=== PATIENT | male | born 2000 | race Caucasian/White ===

== ENCOUNTER 2020-12-31 12:24 | Emergency (ER) | payer BC, SELFPAY ==
[2020-12-31 12:25] VITALS: BP 141/94; PULSE 82; RESP 20; TEMP 38.1; O2SAT 100; BMI 19.8
--- NOTE | 2020-12-31 13:51 | HMH.EDUTC ---
[facility] [place] Disposition Clinical Impression: STD exposure UTI (urinary tract infection) Qualifiers: Urinary tract infection type: site unspecified Hematuria presence: without hematuria Qualified Code(s): N39.0 - Urinary tract infection, site not specified Disposition: Home, Self-Care Condition on Discharge: Good Instructions: Urinary Tract Infection, Urine Culture, DI for Gonorrhea, DI for Chlamydia Additional Instructions: Drink plenty of fluids. Take tylenol or ibuprofen for pain or fever. Take the medications as directed. Follow up with your regular doctor for the test results in 3 to 4 days. GO TO THE ER FOR ANY WORSENING SYMPTOMS Prescriptions: Doxycycline Hyclate [Doxycycline 100mg Capsule] 100 mg PO Q12 10 Days #20 cap Transmission Status: Received by Clinic Pharmacy [facility] Referrals: Provider,Referral, [Primary Care Provider] - Forms: Work/School Release Time of Disposition: 14:42 Medical Decision Making - Medical Records Medical records reviewed: No: I reviewed the patient's medical records. - Manohar Inquiry Pt receiving controlled substance: No Vital Signs: 12/31/20 12:25 12/31/20 14:35 Temperature 100.6 F H 100.6 F H Temperature Source Temporal Artery Scan Temporal Artery Scan Pulse Rate 82 Pulse Rate [Left Radial] 82 Respiratory Rate 20 20 Blood Pressure 141/94 H Blood Pressure [Right Arm] 141/94 H Blood Pressure Mean [Right Arm] 109 Blood Pressure Source Automatic Cuff Blood Pressure Source [Right Arm] Automatic Cuff Blood Pressure Position Sitting Blood Pressure Position [Right Arm] Sitting 02 Sat by Pulse Oximetry 100 Oxygen Delivery Method Room Air Room Air - Lab Data Lab Results 12/31/20 13:36: Strep Scn Rapid Clinic Negative 12/31/20 13:36: Urine Color Dark yellow, Urine Appearance Clear, Urine pH 7.0, Ur Specific [place] 1.025, Urine Protein 3+, Urine Glucose (UA) Negative, Urine Ketones Trace, Urine Blood Negative, Urine Nitrate Negative, Urine Bilirubin Trace, Urine Urobilinogen 1, Ur Leukocyte Esterase Negative Orders (Tests/Meds): ED MEDICATIONS Discontinued Medications Generic Name Dose Route Start Last Admin Trade Name Freq PRN Reason Stop Dose Admin Ceftriaxone Sodium 1 gm 12/31/20 14:26 12/31/20 14:34 Ceftriaxone 1gm Vial IM 12/31/20 14:27 1 gm ONCE ONE Administration Protocol Lidocaine HCl 0 ml 12/31/20 14:26 12/31/20 14:34 Lidocaine 1% 5ml Pf Vial IM 12/31/20 14:27 2.1 ml ONCE ONE Administration ORDERS Category Date Time Status Strep Screen Confirmation Stat Micro 12/31/20 13:36 Received Urine Culture Stat Micro 12/31/20 14:00 Results [facility] [place] HPI - General Stated complaint: Possible UTI Time Seen by Provider: 12/31/20 13:51 Mode of Arrival: Ambulatory Source of Information: Patient Limitations: No Limitations Description of Symptoms (Recalled from Triage Doc. by RN): c/o burning with urination, fever and sore throat. HEENT Symptoms (Recalled from RN notes): Yes Resp Symptoms (Recalled from RN notes): No Skin Symptoms (Recalled from RN notes): No MS Symptoms (Recalled from RN notes): No Functional Status (Recalled from RN notes): wnl - History of Present Illness Provider Complaint: He states that he has been having burning with urination for the past 2 days. He has a sore throat also. And he has had chilling and body aches. - Related Data Previous Rx's Medication Instructions Recorded Doxycycline Hyclate [Doxycycline 100 mg PO Q12 10 Days #20 cap 12/31/20 100mg Capsule] Allergies Allergy/AdvReac Type Severity Reaction Status Date / Time No Known Allergies Allergy Verified 12/31/20 13:36 - Worker's Comp Is this a Worker's Comp case?: No [facility] History - Hepatitis A Screen Drug use history?: No High risk sexual behaviors?: No History of sexually transmitted infection?: No Currently employed?: No Childcare worker?: No Do you have indoor plumbing?: Yes
[2020-12-31 14:35] VITALS: BP 141/94; PULSE 82; RESP 20; TEMP 38.1; O2SAT 100
[2020-12-31 17:31] LABS: UTC Strep Screen (Rapid) Negative (Negative)
[2020-12-31 17:32] LABS: Apearance,Urine Clear (Clear); Color,Urine Dark Yellow (Yellow); Specific Gravity, Urine 1.025 (1.005-1.030)
[2020-12-31 17:33] LABS: Bilirubin,Urine Trace (Negative); Blood, Urine Negative (Negative); Glucose,Urine (UA) Negative (Negative); Ketones,Urine TRACE (Negative); Protein,Urine 3+ (Negative); UTC Leukocyte Esterase,Urine Negative (Negative); UTC Nitrate,Urine Negative (Negative); Urobilinogen,Urine 1 EU/dl (0.2)
[2021-01-02 19:48] LABS: Neisseria gonorrhoeae, NAA Negative (Negative)
== END 2020-12-31 14:45 | disposition home or self-care (01) ==
PROVIDERS: Emergency Provider Nurse Practitioner Family
DX: N30.00 Acute cystitis without hematuria (principal); Z20.2 Contact with and (suspected) exposure to infections with a predominantly sexual mode of transmission; Z20.822 Contact with and (suspected) exposure to COVID-19
CPT/HCPCS: 81003; 87086; 87491; 87591; 87880; 96372; 99203; G0463; U0003

== ENCOUNTER 2021-02-06 11:11 | Emergency (ER) | payer BC, SELFPAY ==
[2021-02-06 13:25] VITALS: PULSE 89; RESP 16; TEMP 36.9; O2SAT 98; BMI 19.9
[2021-02-06 13:29] VITALS: BP 136/88; PULSE 89; RESP 16; TEMP 36.9
--- NOTE | 2021-02-06 13:57 | HMH.EDUTC ---
[facility] [place] Disposition Clinical Impression: Strep throat exposure, Exposure to COVID-19 virus Disposition: Home, Self-Care Condition on Discharge: Good Instructions: DI for Strep Throat, Preventing the Spread of Coronavirus Discharge Instructions Additional Instructions: Drink plenty of fluids. Take tylenol for pain or fever. Return if you begin to have difficulty breathing. Follow up with your regular doctor. GO TO THE ER FOR ANY WORSENING SYMPTOMS Quarantine until you know the results of your covid-19 test. If it is positive, the health department should call you and give you further instructions about your length of Quarantine and other things. Notify your school or workplace of your results and follow their instructions regarding return to work/school. Start the azithromycin (antibiotics) if you begin to have strep throat symptoms. Prescriptions: Azithromycin [Z-Clyde 250mg Tab*] 250 mg PO UD DOSE PK #6 tab Transmission Status: Received by Clinic [facility] Referrals: Provider,Referral, [Primary Care Provider] - Forms: Work/School Release Time of Disposition: 14:00 Medical Decision Making - Medical Records Medical records reviewed: No: I reviewed the patient's medical records. - Manohar Inquiry Pt receiving controlled substance: No Vital Signs: 02/06/21 13:25 02/06/21 13:29 Temperature 98.4 F 98.4 F Temperature Source Oral Pulse Rate 89 Pulse Rate [Left] 89 Respiratory Rate 16 16 Blood Pressure 136/88 02 Sat by Pulse Oximetry 98 [facility] HPI - General Stated complaint: covid test/exposure Time Seen by Provider: 02/06/21 13:57 Mode of Arrival: Ambulatory Source of Information: Patient Limitations: No Limitations Description of Symptoms (Recalled from Triage Doc. by RN): COVID TEST, ASYMPTOMATIC. HEENT Symptoms (Recalled from RN notes): No Resp Symptoms (Recalled from RN notes): No Skin Symptoms (Recalled from RN notes): No MS Symptoms (Recalled from RN notes): No Functional Status (Recalled from RN notes): NA - History of Present Illness Provider Complaint: His daughter was exposed to covid-19 last week. She started to run a fever and feel bad 2 days ago. He has not been vaccinated against covid-19. He denies any symptoms so far. - Related Data Previous Rx's Medication Instructions Recorded Doxycycline Hyclate [Doxycycline 100 mg PO Q12 10 Days #20 cap 12/31/20 100mg Capsule] Azithromycin [Z-Clyde 250mg Tab*] 250 mg PO UD DOSE PK #6 tab 02/06/21 Allergies Allergy/AdvReac Type Severity Reaction Status Date / Time No Known Allergies Allergy Verified 12/31/20 13:36 - Worker's Comp Is this a Worker's Comp case?: No [facility] History - Hepatitis A Screen Drug use history?: No High risk sexual behaviors?: No History of sexually transmitted infection?: No Currently employed?: No Childcare worker?: No Do you have indoor plumbing?: Yes Do you have electricity?: Yes Attestation statement:: This patient has been screened for Hepatitis A risk factors. I have reviewed the patient's past medical history: Yes ROS Obtained: Yes All systems reviewed & no additional complaints - Constitutional Constitutional: Reports system reviewed and no additional complaints, except as docu - Eyes Eyes: Reports system reviewed and no additional complaints, except as docu - ENT Ears, Nose, Mouth, and Throat: Reports system reviewed and no additional complaints, except as docu - Cardiovascular Cardiovascular: Reports system reviewed and no additional complaints, except as docu - Respiratory Respiratory: Reports system reviewed and no additional complaints, except as docu Physical Exam - General General appearance: alert, in no apparent distress - Head Head exam: atraumatic, normocephalic, normal inspection - Eye Eye exam: Present: normal appearance, PERRL, EOMI - ENT ENT exam: Present: normal exam, normal oropharynx, mucous membranes moist, TM's normal
== END 2021-02-06 14:14 | disposition home or self-care (01) ==
PROVIDERS: Emergency Provider Nurse Practitioner Family
DX: J02.0 Streptococcal pharyngitis (principal); Z20.822 Contact with and (suspected) exposure to COVID-19
CPT/HCPCS: 99202; G0463; U0003

== ENCOUNTER 2021-08-16 17:00 | Emergency (ER) | payer BC, SELFPAY ==
[2021-08-16 17:00] VITALS: BP 134/85; PULSE 96; RESP 18; TEMP 37; O2SAT 99; BMI 20.5
--- NOTE | 2021-08-16 17:19 | CT_ITS ---
PROCEDURE INFORMATION: Exam: CT Abdomen And Pelvis Without Contrast Exam date and time: 08/16/2021 5:19 PM Age: 20 years old Clinical indication: Abdominal pain; Flank; Left; Additional info: Left flank pain TECHNIQUE: Imaging protocol: Computed tomography of the abdomen and pelvis without contrast. Radiation optimization: All CT scans at this facility use at least one of these dose optimization techniques: automated exposure control; mA and/or kV adjustment per patient size (includes targeted exams where dose is matched to clinical indication); or iterative reconstruction. COMPARISON: No relevant prior studies available. FINDINGS: Lungs: Lung bases unremarkable. Liver: The right lobe of the liver is low lying. The appearance is suggestive of a Lydia's lobe. Gallbladder and bile ducts: The gallbladder is contracted. A large amount of food products are demonstrated in the stomach. Pancreas: Normal. No ductal dilation. Spleen: Normal. No splenomegaly. Adrenal glands: Normal. No mass. Kidneys and ureters: Normal. No hydronephrosis. Stomach and bowel: The bowel is not opacified. In conjunction with excessive amount of retained fecal debris, intrinsic abnormalities could not be excluded. No findings to suggest diverticulosis or diverticulitis. Appendix: No evidence of appendicitis. Intraperitoneal space: Unremarkable. No free air. No significant fluid collection. Vasculature: Unremarkable. No abdominal aortic aneurysm. Lymph nodes: Unremarkable. No enlarged lymph nodes. Urinary bladder: Unremarkable as visualized. Reproductive: Unremarkable as visualized. Bones/joints: Unremarkable. No acute fracture. Soft tissues: Unremarkable. IMPRESSION: 1. Low lying right lobe of the liver. Findings suggestive of a Lydia's lobe rather than hepatomegaly. Clinically correlate. 2. Markedly contracted gallbladder secondary to postprandial state. 3. Limited bowel evaluation secondary to lack of contrast. No evidence of obstruction.
--- NOTE | 2021-08-16 17:36 | HMH.EDGENADL ---
ED Disposition Clinical Impression: Gastroenteritis Disposition: Home, Self-Care Condition on Discharge: Good Instructions: DI for Viral Gastroenteritis -- Adult Prescriptions: Dicyclomine HCl [Bentyl 10mg capsule] 10 mg PO QID #28 cap Transmission Status: Pending to [id number] Ondansetron [Zofran 4mg ODT] 4 mg PO BIDP PRN #10 tab PRN Reason: Nausea Transmission Status: Pending to [id number] Referrals: Provider,MD Orlin [Primary Care Provider] - Yvan Jha MD [Staff Physician] - - Critical Care Critical Care Time: No Attestation: On 08/16/21, the high probability of a clinically significant, sudden or life threatening deterioration of the following system(s) required my full and direct attention, intervention and personal management. The time I documented below is in addition to time spent performing reported procedures but includes the following listed in this critical care notation. Medical Decision Making - Medical Records Medical records reviewed: Yes: I reviewed the patient's medical records. - Manohar Inquiry Pt receiving controlled substance: No Vital Signs: 08/16/21 17:00 08/16/21 18:00 Temperature 98.6 F Temperature Source Oral Pulse Rate 74 Pulse Rate [Left Radial] 96 H Respiratory Rate 18 16 Blood Pressure 121/69 Blood Pressure [Right Arm] 134/85 Blood Pressure Mean 88 Blood Pressure Mean [Right Arm] 101 02 Sat by Pulse Oximetry 99 98 Oxygen Delivery Method Room Air - Lab Data Lab Results 08/16/21 17:20: WBC 5.9, RBC 4.92, Hgb 15.9, Hct 46.4, MCV 94.4 H, MCH 32.4 H, MCHC 34.3, RDW 12.5, Plt Count 320, MPV 7.5, Neut % (Auto) 60.8, Lymph % (Auto) 30.6, [place] % (Auto) 5.8, Eos % (Auto) 1.2, Baso % (Auto) 1.7, Neut # (Auto) 3.6, Lymph # (Auto) 1.8, [place] # (Auto) 0.3, Eos # (Auto) 0.1, Baso # (Auto) 0.1 08/16/21 17:20: Sodium 139, Potassium 3.6, Chloride 100, Carbon Dioxide 28, Anion Gap 14.6, BUN 4 L, Creatinine 0.80, Estimated Creat Clear 149, Estimated GFR 121, Est GFR ( Amer) 146, Glucose 86, Calcium 8.4, Total Bilirubin 0.6, AST 105 H, ALT 82 H, Alkaline Phosphatase 100, Total Protein 7.5, Albumin 4.6, Globulin 2.9, Albumin/Globulin Ratio 1.6, Lipase 148 Result diagrams: 08/16/21 17:20 08/16/21 17:20 Orders (Tests/Meds): ED MEDICATIONS Generic Name Dose Route Start Last Admin Trade Name Freq PRN Reason Stop Dose Admin Sodium Chloride 1,000 mls @ 999 mls/hr 08/16/21 17:30 08/16/21 17:32 Sod Chlor 0.9% 1000ml Bag IV 08/16/21 18:30 999 mls/hr .Q1H1M GIOVANNI Administration Discontinued Medications Generic Name Dose Route Start Last Admin Trade Name Freq PRN Reason Stop Dose Admin Ketorolac Tromethamine 30 mg 08/16/21 17:19 08/16/21 17:32 Ketorolac 30mg/Ml Vial IV 08/16/21 17:20 30 mg ONCE ONE Administration Ondansetron HCl 4 mg 08/16/21 17:19 08/16/21 17:32 Ondansetron 4mg/2ml Vial IV 08/16/21 17:20 4 mg ONCE ONE Administration ORDERS Category Date Time Status CT abdomen pelvis wo con Stat Cat Scan 08/16/21 17:19 Taken Urinalysis and Microscopic Stat Lab 08/16/21 17:19 Ordered - CT Data CT Scan: Abdomen, Pelvis Time Received: 19:[address] Reviewed: Yes: I have reviewed the patient's CT results, I have viewed the radiologist's interpretation Findings Narrative: Low hanging lobe of the liver concerning for Lydia's lobe. Gallbladder is contracted. No other acute findings. - Reevaluation(s) Time: 19:38 Reevaluation #1: On reevaluation, patient is feeling much better. He is tolerating oral intake. Repeat abdominal examination is benign. No evidence of acute abdomen. Does have some nonspecific findings in the liver which will require follow-up with his PCP. Patient was given strict return precautions. Verbalized understanding. Medical Decision Narrative: 20-year-old male presenting with sharp stabbing pain in the left side. Concern for nephrolithiasis. Abdo
[2021-08-16 17:38] LABS: Chloride 100 mmol/L (98-107); Potassium 3.6 mmoL/L (3.5-5.1); Sodium 139 mmol/L (136-145)
[2021-08-16 17:40] LABS: Basophils # 0.1 K/mm3 (0-0.2); Basophils % 1.7 % (0.1-2.0); Blood Urea Nitrogen 4 mg/dl (9-20); Creatinine Clearance Estimated 149 mL/min (50-200); Eosinophils # 0.1 K/mm3 (0.0-0.4); Eosinophils % 1.2 % (0.1-12.0); Estimated Glomerular Filt Rate 121 ml/min (>60); GFR (African American) 146 ML/MIN (>60); Hematocrit 46.4 % (42.0-52.0); Hemoglobin 15.9 g/dL (14.1-18.0); Lymphocytes # 1.8 K/mm3 (0.7-4.5); Lymphocytes % 30.6 % (10-50); Mean Corpuscular HGB Conc 34.3 g/dL (31.8-35.4); Mean Corpuscular Hemoglobin 32.4 pg (27.0-31.2); Mean Corpuscular Volume 94.4 fl (80-94); Mean Platelet Volume 7.5 fl (7.4-10.4); Monocytes # 0.3 K/mm3 (0.1-1.0); Monocytes % 5.8 % (1.7-9.3); Neutrophils # 3.6 K/mm3 (1.8-7.8); Neutrophils % 60.8 % (37.0-80.0); Platelet Count 320 K/mm3 (142-424); Red Blood Count 4.92 M/mm3 (4.60-6.20); Red Cell Distribution Width 12.5 % (11.5-17.5); White Blood Count 5.9 K/mm3 (4.8-10.8)
[2021-08-16 17:41] LABS: Albumin Level 4.6 g/dl (3.5-5.0); Albumin/Globulin Ratio 1.6 (1.1-1.8); Anion Gap 14.6 mEq/L (5-15); Calcium 8.4 mg/dl (8.4-10.2); Carbon Dioxide 28 mmol/L (22.0-30.0); Globulin 2.9 g/dL (1.3-3.2); Glucose 86 mg/dl (74-100); Lipase 148 U/L (23-300); Total Protein,Serum 7.5 g/dl (6.3-8.2)
[2021-08-16 17:46] LABS: Alanine Aminotransferase 82 U/L (12-78); Alkaline Phosphatase 100 U/L (38-126); Aspartate Amino Transferase 105 U/L (17-59); Bilirubin,Total 0.6 mg/dl (0.2-1.3)
[2021-08-16 18:00] VITALS: BP 121/69; PULSE 74; RESP 16; O2SAT 98
[2021-08-16 19:00] VITALS: BP 117/60; PULSE 66; O2SAT 97
[2021-08-16 19:30] VITALS: BP 123/90; PULSE 70; O2SAT 96
[2021-08-16 19:59] LABS: Microscopic, Urine URINE MICROSCOPIC (MICROSCOPIC)
[2021-08-16 20:04] LABS: Appearance,Urine CLEAR (Clear); Bilirubin,Urine Negative (Negative); Blood, Urine Negative (Negative); Color,Urine DK YELLOW (Yellow); Glucose,Urine (UA) Negative (Negative); Ketones,Urine Negative (Negative); Leukocyte Esterase,Urine Negative (Negative); Nitrate,Urine Negative (Negative); Protein,Urine TRACE (Negative); Specific Gravity, Urine 1.025 (1.005-1.030)
[2021-08-16 20:06] LABS: Bacteria,Urine 1+ /lpf
[2021-08-16 20:50] VITALS: BP 120/87; PULSE 65; RESP 16; TEMP 36.5; O2SAT 98
== END 2021-08-16 20:52 | disposition home or self-care (01) ==
PROVIDERS: Emergency Provider Emergency Medicine
DX: K52.9 Noninfective gastroenteritis and colitis, unspecified (principal)
CPT/HCPCS: 74176; 80053; 81001; 83690; 85025; 87086; 96365; 96375; 99284; J2405

== ENCOUNTER 2022-06-11 17:34 | Emergency (ER) | payer BC, SELFPAY ==
--- NOTE | 2022-06-11 18:02 | PC.NURSE ---
SOLOMON HOLLOWAY at
--- NOTE | 2022-06-11 18:08 | CT_ITS ---
PROCEDURE INFORMATION: Exam: CT Abdomen And Pelvis With Contrast Exam date and time: 06/11/2022 6:47 PM Age: 21 years old Clinical indication: Abdominal pain; Generalized; Additional info: Generalized pain, sudden onset, diffuse tenderness TECHNIQUE: Imaging protocol: Computed tomography of the abdomen and pelvis with contrast. Radiation optimization: All CT scans at this facility use at least one of these dose optimization techniques: automated exposure control; mA and/or kV adjustment per patient size (includes targeted exams where dose is matched to clinical indication); or iterative reconstruction. Contrast material: ISOVUE; Contrast volume: 75 ml; Contrast route: IV; COMPARISON: CT ABDOMEN PELVIS WO CON 08/16/2021 5:30 PM FINDINGS: Liver: Normal. No mass. Gallbladder and bile ducts: Normal. No calcified stones. No ductal dilation. Pancreas: Normal. No ductal dilation. Spleen: Normal. No splenomegaly. Adrenal glands: Normal. No mass. Kidneys and ureters: Normal. No hydronephrosis. Stomach and bowel: Unremarkable. No obstruction. No mucosal thickening. Appendix: No evidence of appendicitis. Intraperitoneal space: Unremarkable. No free air. No significant fluid collection. Vasculature: Unremarkable. No abdominal aortic aneurysm. Lymph nodes: Unremarkable. No enlarged lymph nodes. Urinary bladder: Unremarkable as visualized. Reproductive: Unremarkable as visualized. Bones/joints: Unremarkable. No acute fracture. Soft tissues: Unremarkable. IMPRESSION: No acute findings.
--- NOTE | 2022-06-11 18:08 | HMH.EDGENADL ---
Discharge Plan Disposition Patient Disposition: Home, Self-Care Condition: Good Prescriptions Prescriptions: New ondansetron 4 mg tablet,disintegrating 4 mg PO Q8H PRN (Reason: nausea and vomiting) Qty: 12 0RF No Action doxycycline hyclate 100 MG capsule 100 mg PO Q12 10 Days Qty: 20 0RF azithromycin 250 MG tablet 250 mg PO UD DOSE PK Qty: 6 0RF Rx Instructions: Take two (2) tablets today, then one (1) tablet days #2 thru #5 ondansetron 4 MG tablet,disintegrating 4 mg PO BIDP PRN (Reason: Nausea) Qty: 10 0RF dicyclomine 10 MG capsule 10 mg PO QID Qty: 28 0RF cefdinir 300 MG capsule 300 mg PO BID 7 Days Qty: 14 0RF cefdinir 300 MG capsule 300 mg PO BID 10 Days Qty: 20 0RF Referrals Follow up/Referrals: Grover Lovett MD [Primary Care Provider] - See instructions Activity Restrictions/Add. Instructions Additional Instructions/Restrictions: You were evaluated in the emergency department today. Please follow-up with your primary care provider over the next 48 hours. Follow-up to have your liver enzymes rechecked. Keep your outpatient follow-up with gastroenterology. 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 Orally hydrate at home is much as possible. Return to the emergency department for any new or worsening symptoms. Clinical Impressions Clinical Impression: Transaminitis Nausea & vomiting Qualifiers: Vomiting type: unspecified Qualified Code(s): R11.2 - Nausea with vomiting, unspecified Abdominal pain Qualifiers: Abdominal location: epigastric Qualified Code(s): R10.13 - Epigastric pain Instructions Patient Instructions: DI for Acute Abdominal Pain, Nausea and Vomiting-Adult Discharge ED Provider: Beckie Alex General Adult HPI General Chief complaint: Abdominal Pain Stated complaint: vomiting, adm pain Time Seen by Provider: 06/11/22 18:02 History of Present Illness HPI narrative: This patient is a 21-year-old male who reports a history of celiac disease presented to the emergency department for evaluation with concern for epigastric abdominal pain, nausea, and vomiting that started just prior to arrival. He has been having intermittent abdominal pain, however nothing this severe. Nothing seems to make it better or worse. He denies any recent fevers, chest pain, shortness of breath, changes in bowel movements, or other concerns. Related Data Previous Rx's Medication Instructions Recorded doxycycline hyclate 100 mg capsule 100 mg PO Q12 10 days #20 caps 12/31/20 azithromycin 250 mg tablet 250 mg PO UD DOSE PK #6 tabs 02/06/21 cefdinir 300 mg capsule 300 mg PO BID 10 days #20 caps 08/16/21 cefdinir 300 mg capsule 300 mg PO BID 7 days #14 caps 08/16/21 dicyclomine 10 mg capsule 10 mg PO QID #28 caps 08/16/21 ondansetron 4 mg disintegrating 4 mg PO BIDP PRN Nausea #10 tabs 08/16/21 tablet ondansetron 4 mg disintegrating 4 mg PO Q8H PRN nausea and 06/11/22 tablet vomiting #12 tabs Allergies Allergy/AdvReac Type Severity Reaction Status Date / Time No Known Allergies Allergy Verified 12/31/20 13:36 [facility] Disclaimer: The information contained in this section may have been updated after the patient was seen, as this information can be updated by other users. Social History Smoking Status: Never smoker alcohol intake: never current occupational status: employed Travel in the last 8 weeks: None ROS Obtained: Yes All systems reviewed & no additional complaints except as documented 14 point review of systems obtained and negative except as mentioned in HPI. Physical Exam General General appearance: alert Comment: Uncomfortable appearing Head Head exam: atraumatic and normocephalic Eye Eye exam: Present normal appearance, PERRL and EOMI ENT ENT exam: Present normal exam, normal oropharynx and mucous membranes moist Neck
--- NOTE | 2022-06-11 18:10 | ECG_ITS ---
APPROVED REPORT Exam: Resting ECG HR:102 bpm ECG Measurements Heart Rate 102 AXES LA 150 P 66 QRSd 102 QRS 86 QT 335 T 54 QTc 393 Conclusion SINUS TACHYCARDIA INCOMPLETE RIGHT BUNDLE BRANCH BLOCK [90+ ms QRS DURATION, TERMINAL R IN V1/V2, 40+ ms S IN I/aVL/V4/V5/V6] NONSPECIFIC T-WAVE ABNORMALITY ABNORMAL RHYTHM ECG UNCONFIRMED REPORT Electronically signed by : Grover Muñiz MD 06/12/2022 08:08:08
[2022-06-11 18:13] VITALS: BP 150/94; PULSE 95; RESP 16; TEMP 36.9; O2SAT 96; BMI 20.5
[2022-06-11 18:30] VITALS: BP 124/75; PULSE 89; O2SAT 96
[2022-06-11 18:49] LABS: Basophils # 0.1 K/mm3 (0-0.2); Basophils % 0.9 % (0.1-2.0); Eosinophils # 0.1 K/mm3 (0.0-0.4); Eosinophils % 0.7 % (0.1-12.0); Hematocrit 43.9 % (42.0-52.0); Hemoglobin 14.7 g/dL (14.1-18.0); Lymphocytes % 25.3 % (10-50); Mean Corpuscular HGB Conc 33.5 g/dL (31.8-35.4); Mean Corpuscular Hemoglobin 30.9 pg (27.0-31.2); Mean Corpuscular Volume 92.3 fl (80-94); Mean Platelet Volume 7.4 fl (7.4-10.4); Monocytes # 0.3 K/mm3 (0.1-1.0); Monocytes % 4.1 % (1.7-9.3); Neutrophils # 5.3 K/mm3 (1.8-7.8); Neutrophils % 68.9 % (37.0-80.0); Platelet Count 345 K/mm3 (142-424); Red Blood Count 4.76 M/mm3 (4.60-6.20); Red Cell Distribution Width 12.6 % (11.5-17.5); White Blood Count 7.7 K/mm3 (4.8-10.8)
--- NOTE | 2022-06-11 18:50 | PC.NURSE ---
pt to radiology via WC with information technology security manager
[2022-06-11 19:05] LABS: Chloride 102 mmol/L (98-107); Potassium 3.7 mmoL/L (3.5-5.1); Sodium 143 mmol/L (136-145)
[2022-06-11 19:07] LABS: Blood Urea Nitrogen 7 mg/dl (9-20); Creatinine Clearance Estimated 131 mL/min (50-200); Estimated Glomerular Filt Rate 105 ml/min (>60); GFR (African American) 127 ML/MIN (>60)
[2022-06-11 19:08] LABS: Alanine Aminotransferase 83 U/L (12-78); Albumin Level 4.8 g/dl (3.5-5.0); Albumin/Globulin Ratio 1.5 (1.1-1.8); Alkaline Phosphatase 114 U/L (38-126); Anion Gap 18.7 mEq/L (5-15); Aspartate Amino Transferase 91 U/L (17-59); Bilirubin,Total 0.6 mg/dl (0.2-1.3); Carbon Dioxide 26 mmol/L (22.0-30.0); Globulin 3.2 g/dL (1.3-3.2); Glucose 131 mg/dl (74-100); Lipase 171 U/L (23-300)
--- NOTE | 2022-06-11 19:41 | PC.NURSE ---
Dr. Alex at [facility]
--- NOTE | 2022-06-11 20:04 | PC.NURSE ---
pt in bed, friend sitting on bed with him, nothing needed at this time
[2022-06-11 20:34] VITALS: BP 125/75; PULSE 89; RESP 16; TEMP 36.9; O2SAT 96
[2022-06-12] LABS: Reflex Lactic Add Lactic Reflex
== END 2022-06-11 20:45 | disposition home or self-care (01) ==
PROVIDERS: Emergency Provider Emergency Medicine; PCP Family Medicine
DX: R10.13 Epigastric pain (principal); R11.2 Nausea with vomiting, unspecified; R74.01 Elevation of levels of liver transaminase levels; K90.0 Celiac disease; Z20.822 Contact with and (suspected) exposure to COVID-19
CPT/HCPCS: 74177; 80053; 83605; 83690; 85025; 93005; 96361; 96374; 96375; 99285; J2405; Q9967

== ENCOUNTER 2022-11-10 21:03 | Emergency (ER) | payer SELFPAY ==
[2022-11-10] VITALS (7 sets, daily range): BP systolic 130–156; BP diastolic 80–99; PULSE 75–109; RESP 16–28; TEMP 36.6–36.8; O2SAT 94–100; BMI 18.1
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
[2022-11-10 21:22] LABS: Chloride 102 mmol/L (98-107)
[2022-11-10 21:23] LABS: Potassium 3.4 mmoL/L (3.5-5.1); Sodium 143 mmol/L (136-145)
[2022-11-10 21:25] LABS: Alanine Aminotransferase 25 U/L (12-78); Aspartate Amino Transferase 37 U/L (17-59); Blood Urea Nitrogen 10 mg/dl (9-20); Creatinine Clearance Estimated 130 mL/min (50-200); Estimated Glomerular Filt Rate 120 ml/min (>60); Ethyl Alcohol 267 mg/dl (0-10); GFR (African American) 145 ML/MIN (>60)
[2022-11-10 21:26] LABS: Albumin Level 4.6 g/dl (3.5-5.0); Albumin/Globulin Ratio 1.3 (1.1-1.8); Alkaline Phosphatase 94 U/L (38-126); Anion Gap 17.4 mEq/L (5-15); Bilirubin,Total 0.4 mg/dl (0.2-1.3); Calcium 9.2 mg/dl (8.4-10.2); Carbon Dioxide 27 mmol/L (22.0-30.0); Globulin 3.5 g/dL (1.3-3.2); Glucose 120 mg/dl (74-100); Total Protein,Serum 8.1 g/dl (6.3-8.2)
[2022-11-10 21:28] LABS: Activated Partial Thrombo Time 25.5 seconds (22.8-30.6); INR 0.95 (0.9-1.1); Prothrombin Time 10.3 seconds (10.1-12.5)
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
[2022-11-10 21:57] LABS: Alanine Aminotransferase 24 U/L (12-78); Albumin Level 4.7 g/dl (3.5-5.0); Alkaline Phosphatase 99 U/L (38-126); Aspartate Amino Transferase 35 U/L (17-59); Bilirubin,Indirect 0.5 mg/dL (0.0-0.9); Bilirubin,Total 0.5 mg/dl (0.2-1.3); Bilirubin,Unconjugated 0.5 mg/dL (0.0-1.1); Magnesium 2.2 mg/dl (1.6-2.3); Total Protein,Serum 7.9 g/dl (6.3-8.2)
--- NOTE | 2022-11-10 22:21 | PC.NURSE ---
Cervical spine is clear. Removed c-collar per attending
--- NOTE | 2022-11-10 22:47 | PC.NURSE ---
on the phone With [facility] transfer center at this time.
--- NOTE | 2022-11-10 22:49 | PC.NURSE ---
on the phone with MD's at this time.
[2022-11-11] VITALS (13 sets, daily range): BP systolic 123–137; BP diastolic 63–83; PULSE 60–87; RESP 17–18; TEMP 36.7; O2SAT 94–97
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
--- NOTE | 2022-11-11 08:37 | PC.NURSE ---
pt being D/C with family. Pt requesting some info on AA , care management came down with info for him. pt sent with disk of films for further treatment
--- NOTE | 2022-11-11 08:47 | SW/DCPLANNER ---
I have provided this patient with an [facility] Resource list.
== END 2022-11-11 08:46 | disposition home or self-care (01) ==
PROVIDERS: Emergency Provider Emergency Medicine
DX: S06.0XAA Concussion with loss of consciousness status unknown, initial encounter (principal); S02.40CA Maxillary fracture, right side, initial encounter for closed fracture; S02.31XA Fracture of orbital floor, right side, initial encounter for closed fracture; S02.40EA Zygomatic fracture, right side, initial encounter for closed fracture; S01.111A Laceration without foreign body of right eyelid and periocular area, initial encounter; Z23 Encounter for immunization; V29.39XA Other motorcycle (driver) (passenger) injured in unspecified nontraffic accident, initial encounter
CPT/HCPCS: 12051; 12041; 70450; 70486; 71045; 71275; 72125; 72128; 72131; 72170; 74177; 80053; 80076; 83735; 85610; 85730; 90715; 96361; 96365; 96372; 96375; 99285; J0131; J0696; J2405; Q9967

== ENCOUNTER 2024-06-04 10:23 | Emergency (ER) | payer SELFPAY ==
[2024-06-04 11:35] VITALS: BP 125/88; PULSE 100; RESP 18; TEMP 36.6; O2SAT 98; BMI 19.2
[2024-06-04] MEDS: TETRACAINE/BENZOCAINE/BUTAMBEN 56 GM SPRAY TP (11:45)
--- NOTE | 2024-06-04 11:47 | ED_ITS ---
Discharge Plan Disposition Patient Disposition: Home, Self-Care Condition: Good Prescriptions Prescriptions: New ibuprofen [IBU] 800 mg tablet 800 mg PO Q8HP PRN (Reason: Moderate Pain) Qty: 30 0RF amoxicillin-pot clavulanate 875-125 mg Tablet 1 tab PO Q12H Qty: 20 0RF No Action cephalexin [cephalexin] 500 mg capsule 500 mg PO TID Qty: 30 0RF ketorolac 10 mg tablet 10 mg PO Q8H PRN (Reason: pain) 3 Days Qty: 10 0RF Referrals Follow up/Referrals: Provider,Referral, MD [Primary Care Provider] - See instructions Activity Restrictions/Add. Instructions Additional Instructions/Restrictions: Drink plenty of fluids. Take the medications as directed. Follow up with your regular doctor. GO TO THE ER FOR ANY WORSENING SYMPTOMS You must follow up with a dentist. Please call and get an appointment to be seen as soon as they can see you. Clinical Impressions Clinical Impression: Dental abscess, Pain, dental, Jaw pain Instructions Patient Instructions: Tooth Abscess, DI for Tooth Abscess Print Language Print Language: Amharic Discharge ED Provider: Paolo Medley [facility] HPI General Stated complaint: left upper jaw pain Mode of Arrival: Ambulatory Source of Information: Patient Time Seen by Provider: 06/04/24 11:47 Description of Symptoms (Recalled from Triage Doc. by RN): TOOTH ACHE HEENT Symptoms (Recalled from RN notes): Yes Resp Symptoms (Recalled from RN notes): No Skin Symptoms (Recalled from RN notes): No MS Symptoms (Recalled from RN notes): No Functional Status (Recalled from RN notes): WNL Related Data Previous Rx's ?Medication ?Instructions ?Recorded cephalexin 500 mg capsule 500 mg PO TID #30 caps 11/11/22 ketorolac 10 mg tablet 10 mg PO Q8H PRN pain 3 days #10 11/11/22 tabs amoxicillin 875 mg-potassium 1 tab PO Q12H #20 tabs 06/04/24 clavulanate 125 mg tablet ibuprofen 800 mg tablet (IBU) 800 mg PO Q8HP PRN Moderate Pain 06/04/24 #30 tabs Allergies Allergy/AdvReac Type Severity Reaction Status Date / Time No Known Allergies Allergy Verified 10/15/22 11:38 Worker's Comp Is this a Worker's Comp case?: No [facility] Disclaimer: The information contained in this section may have been updated after the patient was seen, as this information can be updated by other users. Social History Smoking Status: Never smoker alcohol intake: never current occupational status: employed Travel in the last 8 weeks: None Have you lived/traveled outside [place] in past 30 days?: No Contact w/someone who lives/traveled outside [place] past 30 days?: No Exposure to someone with infectious disease in past 14 days?: No Do you have a fever (greater than 100.4 F or 38 C)?: No Have you tested positive for COVID-19: No Exposed to someone with COVID-19 in past 14 days?: No Do you have a sore throat?: No Do you have a cough?: No Do you have any weakness?: No Do you have any diarrhea?: No Are you experiencing any unusual bleeding?: No Do you have any muscle aches/pain?: No Do you have any abdominal pain?: No Are you experiencing loss of taste or smell?: No ROS Obtained: Yes All systems reviewed & no additional complaints except as documented Constitutional Constitutional: Denies chills and Denies fever(s) Eyes Eyes: Denies eye discharge ENT Ears, Nose, Mouth, and Throat: Reports as per HPI, Denies dizziness, Denies otalgia and Denies sore throat Cardiovascular Cardiovascular: Denies chest pain Respiratory Respiratory: Denies shortness of breath, Denies chest congestion, Denies cough, Denies stridor and Denies wheezing Gastrointestinal Gastrointestingal: Denies nausea or vomiting Musculoskeletal Musculoskeletal: Reports system reviewed and no additional complaints, except as documented and Denies arthralgias Integumentary/Breasts Skin/Breast: Denies rash Neurologic Neurologic: Denies dizziness and Denies paresthesias Allergic/Immunologic Allergic/Immunologic: Denies wheezing Physical Exam General General appearance: alert and in no apparent distress Head Head exam: atraumatic, normocephalic and normal inspection Eye Eye exam: Present normal appearance, PERRL and EOMI ENT ENT exam: Present mucous membranes moist, TM's normal bilaterally and normal external ear exam Expanded ENT Exam Nose exam: Absent sinus tenderness Nasal speculum exam: Bilateral: normal Mouth exam: Present normal external inspection; Absent drooling Teeth exam: Present dental caries, fractured tooth #, dental tenderness # and gingival swelling Throat exam: Present normal inspection Neck Neck exam: Present normal inspection, full ROM and trachea midline; Absent meningismus or lymphadenopathy Chest Chest inspection: Present normal inspection and symmetric chest wall rise; Absent tenderness Respiratory Respiratory exam: Present normal lung sounds bilaterally; Absent respiratory distress Cardiovascular Cardiovascular exam: Present regular rate and normal rhythm; Absent JVD Abdominal Exam Abdominal exam: Present soft and normal bowel sounds; Absent distention, tenderness or guarding Extremities Exam Extremities exam: Present normal inspection, full ROM and normal capillary refill; Absent calf tenderness Back Exam Back exam: Present normal inspection; Absent tenderness Neurological Exam Neurological exam: Present alert and oriented X3 Psychiatric Psychiatric exam: Present normal affect and normal mood Skin Skin exam: Present warm, dry, intact and normal color Lymphatic Lymphatic Findings: no adenopathy Medical Decision Making Medical Records Medical records reviewed: No I reviewed the patient's medical records. Screening: Per USPSTF and CDC recommendations, given the prevalence of disease in our region, it is our hospital?s policy to screen for HIV and viral Hepatitis for all patients aged 18 and over and those with ongoing risk factors. Manohar Inquiry Pt receiving controlled substance: No Vital Signs: 06/04/24 11:35 Temperature 97.9 F Temperature Source Oral Pulse Rate [Left Brachial] 100 H Respiratory Rate 18 Blood Pressure [Left Arm] 125/88 Blood Pressure Mean [Left Arm] 100 02 Sat by Pulse Oximetry 98 Orders (Tests/Meds): ED MEDICATIONS Generic Name Dose Route Start Last Admin Trade Name Freq PRN Reason Stop Dose Admin Benzocaine/Butamben/Tetracaine HCl 1 gm 06/04/24 11:41 06/04/24 11:45 Tetracaine/Benzocaine/Butamben 56 Gm [place] TP 07/04/24 11:40 1 gm NEEDED PRN Administration Toothache Discontinued Medications Generic Name Dose Route Start Last Admin Trade Name Freq PRN Reason Stop Dose Admin Lidocaine HCl 10 ml 06/04/24 11:45 Lidocaine 2% Viscous Amina 15ml Udc MM 06/04/24 11:46 ONCE ONE
[2024-06-04 12:00] VITALS: BP 125/88; PULSE 100; RESP 18; TEMP 36.6
== END 2024-06-04 12:02 | disposition home or self-care (01) ==
PROVIDERS: Emergency Provider Nurse Practitioner Family
DX: K04.7 Periapical abscess without sinus (principal)
CPT/HCPCS: 99213; G0381